=== PATIENT | female | born 1955 | race Caucasian/White ===

== ENCOUNTER 2016-11-19 17:44 | Emergency (ER) | payer OTHER ==
[~2016-11-19 17:44] MED LIST: ANTIVERT25 MG PO; ASPIRIN EC325 MG PO; ISOSORBIDE MONO60 MG PO; LIPITOR80 MG PO; LOPRESSOR25 MG PO; LOVAZA1 GM PO; NITROSTAT0.4 MG SL; PLAVIX75 MG PO; PROTONIX 40MG T40 MG PO; RANEXA500 MG PO; SPIRIVA18 MCG INH; VENTOLIN HFA IN18 GM INH; VITAMIN D5000 UNIT PO; XANAX0.5 MG PO; ZOFRAN4 MG PO; ZOLOFT100 MG PO
== END 2016-11-19 19:09 | disposition home or self-care (01) ==
LOC: FER 17:44
DX: S93.602A Unspecified sprain of left foot, initial encounter (principal); Z88.5 Allergy status to narcotic agent; Z88.6 Allergy status to analgesic agent; W19.XXXA Unspecified fall, initial encounter; Y92.009 Unspecified place in unspecified non-institutional (private) residence as the place of occurrence of the external cause
CPT/HCPCS: 73630; 99283